=== PATIENT | male | born 1950 ===

== ENCOUNTER 2017-05-09 09:01 | Emergency (ER) | payer MEDICARE, OTHER ==
[~2017-05-09] VITALS: Ht 165.1 cm; Wt 89.0 kg
[2017-05-09 09:04] VITALS: Ht 165.1 cm; Wt 89.0 kg
[2017-05-09] MEDS ORDERED: GLIM1TAB2 PO (10:20)
[2017-05-09] MEDS ORDERED: LISI20TA11 PO (10:20)
[2017-05-09] MEDS ORDERED: AMLO-147 PO (10:20)
[2017-05-09] MEDS ORDERED: METF1000 PO (10:20)
[2017-05-09] MEDS ORDERED: APIX5TAB PO (10:21)
[2017-05-09] MEDS ORDERED: SITA50TA2 PO (10:21)
[2017-05-09] MEDS ORDERED: METO-429 PO (10:21)
--- NOTE | 2017-05-09 11:17 | RADRPT ---
PROCEDURE: Ultrasound of the right lower extremity venous system. CLINICAL INDICATION: Right leg pain and swelling, deep venous thrombosis TECHNIQUE: Weinberg scale with and without compression, color doppler, spectral doppler of the venous system of the right lower extremity was performed. Venous augmentation maneuvers were utilized. COMPARISON: No prior studies are available for comparison. FINDINGS: Common femoral vein: Patent. Femoral vein: Patent. Popliteal vein: Patent. Calf veins: Patent. No soft tissue abnormalities are identified. IMPRESSION: No evidence of a deep vein thrombosis within the right lower extremity. RPTAT: AADD .Oz Dias MD, MD Date Time Electronically viewed and signed by .Oz Dias MD, on 05/09/2017 11:17 .B/
--- NOTE | 2017-05-09 11:34 | RADRPT ---
PROCEDURE: Right knee series. CLINICAL INDICATION: Right knee pain TECHNIQUE: Three views of the right knee are available for review. COMPARISON: None available FINDINGS: There is normal mineralization and alignment of the bones of the right knee. No acute fracture or d islocation is identified. There are mild to moderate tricompartmental degenerative changes of the r ight knee. Peripheral atherosclerotic calcifications are present.. IMPRESSION: 1. Mild to moderate degenerative changes of the right knee. 2. Extensive peripheral atherosclerotic vascular disease. RPTAT: KK .Kunal Buchanan MD, MD Date Time Electronically viewed and signed by .Kunal Buchanan MD, MD on 05/09/2017 11:34 .B/
--- NOTE | 2017-05-09 13:18 | ERD ---
ER Documentation Chief Complaint Date/Time DATE: 05/09/17 TIME: 13:13 Chief Complaint Complains of right knee pain x 3 days HPI Exceptionally nice 67-year-old male who presents the emergency room with right knee pain. He describes that he was camping approximately 20 days ago and twisted his knee when he stepped awkwardly. He did not have immediate pain but over the next week he started to develop pain to the right knee along the medial aspect that was worse with movement and worse with walking. Has progressed to the point over the past 10 days that he is having worsening pain and limping. He denies any fevers or chills, no limited range of motion no other falls or injuries no calf swelling no chest pain or shortness of breath. He denies warmth or tenderness to the knee. ROS All systems reviewed and are negative except as per history of present illness. Medications Home Meds Reported Medications Sitagliptin* (Januvia*) 50 Mg Tablet, 50 MG PO DAILY, #30 TAB 05/09/17 Metoprolol Tartrate* (Lopressor*) 50 Mg Tab, 50 MG PO BID, #60 TAB 05/09/17 Apixaban* (Eliquis*) 5 Mg Tablet, 5 MG PO BID, TAB 05/09/17 Amlodipine Besylate* (Amlodipine Besylate*) 10 Mg Tablet, 10 MG PO DAILY, #30 TAB 05/09/17 Lisinopril* (Lisinopril*) 20 Mg Tablet, 20 MG PO DAILY, #30 TAB 05/09/17 Glimepiride* (Glimepiride*) 1 Mg Tablet, 1 MG PO WITH BREAKFAST, TAB 05/09/17 Metformin Hcl* (Metformin Hcl*) 1,000 Mg Tablet, 1000 MG PO WITH BREAKFAST DINNE , #30 TAB 05/09/17 Allergies Allergies: Coded Allergies: No Known Allergies (Unverified Allergy, Unknown, 05/09/17) FmHx Family History: No diabetes Physical Exam Vitals Vital Signs Date Time Temp Pulse Resp B/P Pulse Ox O2 Delivery O2 Flow Rate FiO2 05/09/17 09:04 97.7 70 20 133/80 99 Physical Exam General: Well developed, well nourished, no acute distress Head: Normocephalic, atraumatic. Eyes: EOM intact ENT: Moist mucous membranes Neck: Full ROM Respiratory: No respiratory distress Cardiovascular: Good capillary refil Abdominal: Nondistended : Deferred MSK: Right knee with full active and passive range of motion with mild tenderness along the medial aspect of the knee, soft Jude positive test, some pain when stressing the medial collateral ligament. Otherwise no effusion full active and passive range of motion without erythema warmth or tenderness. 2+ dorsalis pedis and posterior tibial pulses, negative Homans sign Neurologic: Alert and oriented, moving all extremities, normal speech, steady gait Skin: No rash Psych: Normal mood Procedures/MDM EKG, MONITORS, & DIAGNOSTIC IMAGING: X-ray right knee: I reviewed and interpreted multiple views of the x-ray Bones: Senescent changes, no acute fractures soft tissue: No evidence of foreign body Right lower extremity duplex: No evidence of DVT, per radiologist MRI right knee: Pending PROCEDURES: Splint Application Note: Splint type: Devon wrap Extremity: Right knee indication: Knee sprain The patient was consented at bedside prior to splint application and states understanding of risks, benefits, and alternatives. The patient was neurovascularly intact prior to and status post application of the splint. The patient tolerated the procedure well and there were no complications. MEDICAL DECISION MAKING: The patient presents with right knee pain that appears to be related to stepping awkwardly. His clinical exam is most consistent with either MCL sprain versus meniscus tear. There are no signs or symptoms concerning for DVT , septic arthritis, inflammatory arthritis or acute vascular occlusion. The patient does have worsening pain over this timeframe therefore he would benefit from x-ray imaging and lower extremity duplex. The patient is having difficulty following up with primary care physician and his son is requesting MRI of the knee. MRI appears to be warranted given the progression of his disease. ER COURSE: The patient was given an Devon wrap. X-ray imaging as above. The patient's MRI is ordered and pending at the time of signout. Patient endorsed ongoing provider, Dr. Santiago to follow on MRI results. Likely outpatient follow-up is appropriate with outpatient orthopedic follow-up, PT and OT. I kept the patient and/or family informed of laboratory and diagnostic imaging results throughout the emergency room course. DISPOSITION PLAN: Pending MRI imaging would anticipate discharge home Departure Diagnosis: Primary Impression: Right knee sprain Encounter type: initial encounter Involved ligament of knee: medial collateral ligament Qualified Code: S83.411A - Sprain of medial collateral ligament of right knee, initial encounter Condition: Stable Patient Instructions: Knee Sprain, Knee Sprain: Collateral Ligaments Referrals: [facility] 7 a.m.- 11 p.m. Every Day of the Week NO APPOINTMENT OR AUTHORIZATION NEEDED THE [facility] Hours: Mon-Fri 9:00 AM - 5:00 PM Additional Instructions: You will likely need a MRI of your knee. Return for worsening symptoms or trouble walking. TRES OJEDA MD May 09, 2017 13:18
--- NOTE | 2017-05-09 15:03 | RADRPT ---
PROCEDURE: MRI OF THE RIGHT KNEE CLINICAL INDICATION: Right knee pain and limited range of motion for 20 days. Recent injury. TECHNIQUE: Multiple MR pulse sequences in multiple planes were obtained. Images were interpreted on a high-resolution PACS system. COMPARISON: None available. FINDINGS: Medial compartment: There is a degenerative complex tear of the medial meniscal body and posterior h orn inclusive of oblique and radial components. Marked thickening the posterior tibial attachment. There is high-grade chondral loss at the central weightbearing margin of the medial tibial plateau and also anteriorly noting subchondral edema. There is a small focal area of high-grade chondral lo ss at the femoral condyle centrally measuring up to 1 cm in length and 3 mm in transverse diameter. The medial collateral ligament is intact and mildly bowed medially. Marginal osteophytes are prese nt. Lateral compartment: The lateral meniscus is intact, as are the structures of the posterolateral cor ner. There is focal high-grade chondral loss at the inner margin lateral femoral condyle and overly ing tibial plateau margin seen on the coronal sequence image 10 noting reactive subchondral edema. Intercondylar notch: There is mild intrasubstance ganglion formation of the anterior cruciate ligame nt without evidence of a recent tibial translation event. The posterior cruciate ligament is intact . Patellofemoral joint: Mild chondral loss and surface irregularity seen at the median patellar eminen ce and inferior aspect of the trochlear sulcus. No high-grade chondral defects are identified. The extensor mechanism is intact. Other findings: Small to moderate-sized joint effusion. A small amount of fluid seen in the semimemb ranosus bursa. IMPRESSION: 1. Complex degenerative tear of the medial meniscal body and posterior horn. 2. Small focal areas of high-grade chondral loss at the medial and lateral femorotibial compartment s noting small areas of reactive subchondral edema versus developing subchondral trabecular injury. 3. Moderate sized joint effusion and reactive synovitis. RPTAT: UU .Phillip Hoff MD, Date Time Electronically viewed and signed by .Phillip Hoff MD, MD on 05/09/2017 15:03 .d/
== END 2017-05-09 15:51 | disposition home or self-care (01) ==
LOC: E/R 09:01
DX: S83.411A Sprain of medial collateral ligament of right knee, initial encounter (principal); X50.9XXA Other and unspecified overexertion or strenuous movements or postures, initial encounter; Y92.9 Unspecified place or not applicable; Z79.01 Long term (current) use of anticoagulants; Z79.84 Long term (current) use of oral hypoglycemic drugs
CPT/HCPCS: 73562; 73721; 93971